=== PATIENT | male | born 1965 | race Caucasian/White ===

== ENCOUNTER 2018-09-06 20:58 | Emergency (ER) | payer BC ==
[2018-09-06 21:15] VITALS: BP 152/84
[2018-09-06] MEDS ORDERED: Fluorescein Sodium TOPICAL* 1 MG TEST STRIP OPHTHALMIC ONE (21:15)
[2018-09-06] MEDS ORDERED: Tetracaine 0.5% OPTH.SOL 4 ML* 1 DROP BTL RIGHT EYE ONE (21:17)
--- NOTE | 2018-09-06 21:35 | UC ---
Eye Complaint HPI - HPI Summary HPI Summary: pT PRESENTS WITH C/O SUDDEN ONSET right eye pain that began this evening. Pt reports that he rubbed his eye with his finger and had sudden on set of pain. - History of Current Complaint Chief Complaint: UCEye Stated Complaint: RT EYE COMPLAINT Time Seen by Provider: 09/06/18 21:08 Hx Obtained From: Patient Onset/Duration: Sudden Onset, Lasting Hours Timing: Constant Severity Initially: Moderate Severity Currently: Moderate Pain Intensity: 3 Character: Sharp Aggravating Factor(s): Blinking Alleviating Factor(s): Nothing Associated Signs And Symptoms: Positive: Photophobia, Drainage (Clear) - Risk Factors Penetrating Injury Risk Factor: Negative Globe Rupture Risk Factors: Negative Acute Glaucoma Risk Factors: Negative Optic Artery Occlusion Risk Factors: Negative - Allergies/Home Medications Allergies/Adverse Reactions: Allergies Allergy/AdvReac Type Severity Reaction Status Date / Time Penicillins Allergy Hives Verified 09/06/18 21:01 Home Medications: Home Medications Amlodipine Besylate [Norvasc] 10 mg PO QPM 09/06/18 [History Confirmed 09/06/18] PMH/Surg Hx/FS Hx/Imm Hx Previously Healthy: Yes - Surgical History Surgical History: None - Family History Known Family History: Positive: Hypertension - Social History Occupation: Employed Full-time Lives: With Family Alcohol Use: Occasionally Substance Use Type: None Smoking Status (MU): Former Smoker Have You Smoked in the Last Year: No - Immunization History Most Recent Tetanus Shot: 2013 Review of Systems All Other Systems Reviewed And Are Negative: Yes Constitutional: Positive: Negative Skin: Positive: Negative Eyes: Positive: Drainage - clear, Eye Redness, Photophobia ENT: Positive: Negative Respiratory: Positive: Negative Cardiovascular: Positive: Negative Gastrointestinal: Positive: Negative Genitourinary: Positive: Negative Motor: Positive: Negative Neurovascular: Positive: Negative Musculoskeletal: Positive: Negative Neurological: Positive: Negative Psychological: Positive: Negative Is Patient Immunocompromised?: No Physical Exam Triage Information Reviewed: Yes Appearance: Pain Distress Vital Signs: Initial Vital Signs Temp 97.8 F 09/06/18 21:11 Pulse 69 09/06/18 21:11 Resp 16 09/06/18 21:11 BP 152/84 09/06/18 21:11 Pulse Ox 100 09/06/18 21:11 Vital Signs Reviewed: Yes Eyes: Positive: Other: - scleritis, flurescein up take ~ 5mm length X 3 mm wide around right eye from 6 o'clock position to 10 o'clock position. ENT Exam: Normal Dental Exam: Normal Respiratory: Positive: Normal breath sounds Musculoskeletal Exam: Normal Neurological Exam: Normal Psychological Exam: Normal Skin Exam: Normal Eye Complaint Course/Dx - Course Course Of Treatment: I discussed with the pt the need for the pt to seek care at the closest hosptial with eye care services, this was determined to be [facility] if symptoms worsened between now and when he is able to see his eye care provider. Pt verbalized understanding and agreed to plan of care. - Differential Dx/Diagnosis Differential Diagnosis/HQI/PQRI: Conjunctivitis Provider Diagnosis: Corneal abrasion, right Discharge - Sign-Out/Discharge Documenting (check all that apply): Patient Departure All imaging exams completed and their final reports reviewed: No Studies - Discharge Plan Condition: Stable Disposition: HOME Patient Education Materials: Corneal Abrasion (ED) Referrals: Lisandro Ohara MD [Primary Care Provider] - Alex Almaguer MD [Medical Doctor] - 09/07/18 Additional Instructions: PLEASE NOTE, IF YOUR SYMPTOMS WORSEN AT ANY TIME PLEASE SEEK CARE AT [facility] FOR EVALUATION AND TREATMENT SOON POSSIBLE - Billing Disposition and Condition Condition: STABLE Disposition: Home
[2018-09-06] MEDS: Tobramycin 0.3% OPHTH.SOL* 5 ML BOT (regular eye drops) RIGHT EYE ONE (21:45)
== END 2018-09-06 21:51 | disposition home or self-care (01) ==
LOC: UCCORT 20:58
DX: S05.01XA Injury of conjunctiva and corneal abrasion without foreign body, right eye, initial encounter (principal); X58.XXXA Exposure to other specified factors, initial encounter; Y92.9 Unspecified place or not applicable; Z88.0 Allergy status to penicillin; Z87.891 Personal history of nicotine dependence
CPT/HCPCS: 99212; A9270-GY; G0463